=== PATIENT | female | born 1980 | race Caucasian/White ===

== ENCOUNTER 2016-11-08 16:02 | Emergency (ER) | payer SELFPAY ==
[~2016-11-08] VITALS: Ht 149.9 cm; Wt 53.5 kg
[~2016-11-08 16:02] MED LIST: ALBUTEROL17 GM INH; AMOXICILLIN PO; BENZONATATE PO; CLARITIN10 MG PO; IBUPROFEN PO; MORGIDOX100 MG PO; TORADOL10 MG PO; VICODIN 5/500 T1 TAB PO; ZITHROMAX PO; [UNRECOGNIZED DRUG - REMARK]
[2016-11-08] MEDS ORDERED: NO MEDICATIONS (16:24)
[2016-11-08 17:05] LABS: URINE SOURCE CLEAN CATCH
[2016-11-08 17:08] LABS: URINE APPEARANCE CLEAR; URINE BILIRUBIN NEG (NEG); URINE BLOOD TRACE-INTACT (NEG); URINE COLOR YELLOW; URINE GLUCOSE NEG (NORM); URINE KETONE 1+ (NEG); URINE LEUKOCYTE ESTERASE NEG (NEG); URINE NITRATE NEG (NEG); URINE PH 5.5 (5-8); URINE PROTEIN NEG (NEG); URINE SPECIFIC GRAVITY >=1.030 (1.003-1.035); URINE UROBILINOGEN 0.2 MG/DL (NORM)
[2016-11-08 17:15] LABS: MICRO INDICATED? YES
[2016-11-08 17:28] LABS: CULTURE INDICATED? NO; URINE BACTERIA NEG (NEG); URINE RBC 0-2 /[HPF] (0-2); URINE WBC 0-2 /[HPF] (0-5)
== END 2016-11-08 18:13 | disposition home or self-care (01) ==
LOC: SED 16:02
PROVIDERS: Emergency Medicine
DX: R10.9 Unspecified abdominal pain (principal); J45.909 Unspecified asthma, uncomplicated; F17.200 Nicotine dependence, unspecified, uncomplicated; Z88.8 Allergy status to other drugs, medicaments and biological substances
CPT/HCPCS: 81003; 84703; 99284